=== PATIENT | male | born 1930 | race Caucasian/White ===

== ENCOUNTER 2018-01-28 15:56 | Emergency (ER) | payer MEDICARE, OTHER ==
[2018-01-28 16:12] VITALS: BP 168/65
--- NOTE | 2018-01-28 16:56 | UC ---
Cardiac HPI - HPI Summary HPI Summary: Patient to the urgent care today with his . Patient has noted increasing frequency of subjective sensation of palpitations. He's had these for a couple years but now these worsened over the last 5-7 days . he does feel short of breath and he has not had any chest pain currently at rest with us he is not having any chest pain or shortness of breath but he does complain of fatigue. - History of Current Complaint Chief Complaint: UCCardiac Stated Complaint: HEART COMPLAINT Time Seen by Provider: 01/28/18 16:14 Hx Obtained From: Patient Onset/Duration: Worse Since - past 5-7 days Timing: Constant Current Severity: None Pain Intensity: 0 Character: Slow, Irregular, Skipped Beats Aggravating Factor(s): Nothing Alleviating Factor(s): Rest - Allergy/Home Medications Allergies/Adverse Reactions: Allergies Allergy/AdvReac Type Severity Reaction Status Date / Time No Known Allergies Allergy Verified 01/28/18 16:13 Home Medications: Home Medications Melatonin 5 mg PO 01/28/18 [History] PMH/Surg Hx/FS Hx/Imm Hx Previously Healthy: No Cardiovascular History: Hypertension - Surgical History Surgical History: Yes Surgery Procedure, Year, and Place: 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, COLON CA 05/04, PROSTATECTOMY 1999 - Family History Known Family History: Positive: None - Social History Occupation: Retired Lives: With Family Alcohol Use: Rare Substance Use Type: None Smoking Status (MU): Never Smoked Tobacco - Immunization History Most Recent Influenza Vaccination: 2012 Most Recent Tetanus Shot: UNSURE Most Recent Pneumonia Vaccination: 2012 Review of Systems Constitutional: Negative Skin: Negative Eyes: Negative ENT: Negative Respiratory: Negative Cardiovascular: Palpitations Gastrointestinal: Negative Genitourinary: Negative Motor: Negative Neurovascular: Negative Musculoskeletal: Negative Neurological: Negative Psychological: Negative Is Patient Immunocompromised?: No All Other Systems Reviewed And Are Negative: Yes Physical Exam Triage Information Reviewed: Yes Appearance: Well-Appearing, No Pain Distress, Well-Nourished Vital Signs: Initial Vital Signs Temp 98.3 F 01/28/18 16:08 Pulse 57 01/28/18 16:08 Resp 15 01/28/18 16:08 BP 168/65 01/28/18 16:08 Pulse Ox 96 01/28/18 16:08 Vital Signs Reviewed: Yes Eye Exam: Normal Eyes: Positive: Conjunctiva Clear ENT Exam: Normal ENT: Positive: Normal ENT inspection, Hearing grossly normal. Negative: Trismus , Muffled voice, Hoarse voice Dental Exam: Normal Neck exam: Normal Neck: Positive: Supple, Nontender, No Lymphadenopathy Respiratory Exam: Normal Respiratory: Positive: Chest non-tender, Lungs clear, Normal breath sounds, No respiratory distress, No accessory muscle use Cardiovascular Exam: Other Cardiovascular: Positive: No Murmur, Pulses Normal, Brisk Capillary Refill, Bradycardia Abdominal Exam: Normal Musculoskeletal Exam: Normal Musculoskeletal: Positive: Strength Intact, ROM Intact, No Edema Neurological Exam: Normal Neurological: Positive: Alert, Muscle Tone Normal Psychological Exam: Normal Skin Exam: Normal Diagnostics - EKG Cardiac Rate: Bradycardia Cardiac Rhythm: Sinus: Normal Ectopy: PVCs ST Segment: Non-Specific - Assessment/Plan Course Of Treatment: to ed via ems for further evaluation of palpittions via EMS - Clinical Impression Provider Diagnoses: subjective palpitations, fatique, bradycardia - Physician Notifications Time Discussed With Above Provider: 16:45 Joanna Slater Instructed by Provider To: Transfer Discharge - Sign-Out/Discharge Documenting (check all that apply): Discharge/Admit/Transfer - Discharge Plan Condition: Stable Disposition: TRANS [facility] FAC Patient Education Materials: Heart Palpitations (ED) Referrals: Haile Rausch MD [Primary Care Provider] - Additional Instructions: Please go directly to the emergency department [facility] for further evaluation of your palpitations - Billing Disposition and Condition Condition: STABLE Disposition: [facility] Care Fac
== END 2018-01-28 16:55 | disposition short-term general hospital (02) ==
LOC: UCEAST 15:56
DX: R00.2 Palpitations (principal); R00.1 Bradycardia, unspecified; R53.83 Other fatigue; I10 Essential (primary) hypertension; Z85.038 Personal history of other malignant neoplasm of large intestine; Z90.79 Acquired absence of other genital organ(s)
CPT/HCPCS: 93005; 99213; G0463

== ENCOUNTER 2018-01-28 17:35 | Emergency (ER) | payer MEDICARE, OTHER ==
[2018-01-28 18:00] LABS: ABS Basophils 0 10^3/ul (0-0.2); ABS Eosinophils 0.2 10^3/ul (0-0.6); ABS Lymphocytes 1.4 10^3/ul (1.0-4.8); ABS Monocytes 0.8 10^3/ul (0-0.8); ABS Neutrophils 4.6 10^3/ul (1.5-7.7); ABS Nucleated RBC 0 10^3/ul; Hematocrit 41 % (42-52); Hemoglobin 14.1 g/dl (14.0-18.0); Lymphocyte % 19.5 % (25-47); Mean Corpuscular HGB Conc 34 g/dl (31-36); Mean Corpuscular Hemoglobin 30 pg (27-31); Mean Corpuscular Volume 88 fL (80-94); Mean Platelet Volume 8.8 um3 (7.4-10.4); Nucleated Red Blood Cells % 0; Platelet Count 167 10^3/ul (150-450); Red Blood Count 4.65 10^6/ul (4.0-5.4); Red Cell Distribution Width 14 % (10.5-15)
--- NOTE | 2018-01-28 18:12 | RAD ---
Indication: Palpitations. Single frontal view of the chest performed at 1757 hours was reviewed. Comparison is made with previous exam dated February 24, 2014. Cardiomegaly is noted. Interstitial edema is noted. No alveolar consolidation is noted. There is likely poor inspiratory effort. IMPRESSION: MILD VASCULAR CONGESTION AND POOR RESPIRATORY EFFORT WITHOUT DEFINITE EVIDENCE OF PNEUMONIA.
[2018-01-28 19:29] VITALS: BP 159/107
--- NOTE | 2018-01-28 21:22 | ED ---
Emil Rosales Angela, scribed for Ugo Herrera MD on 01/28/18 at 1819 . Palpitations / Dysrhythmia - HPI Summary HPI Summary: This pt is an 87 y/o male presenting to [facility] via EMS from [facility] c/o intermittent irregular heart rate for the past couple of months. Pt reports his irregular heart beat is more pronounced at night and has to take a deep breath to feel better. He is able to sleep lying flat at night. Pt additionally notes fatigue and general lack of energy. Denies chest pain, SOB, swelling in LE. 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 He tried to make an appointment with Dr. Wellington but was unable to get one until March, so he decided to go to Urgent Care. Pt was referred to the ED from Urgent Care. - History of Current Complaint Chief Complaint: EDDysrhythmPalp Hx Obtained From: Patient Onset/Duration: Still Present Timing: Intermittent Episodes Lasting: - a couple of months now Severity Currently: Moderate Character: Irregular Aggravating: Nothing Alleviating: Nothing Associated Signs & Symptoms: Negative - Allergy/Home Medications Allergies/Adverse Reactions: Allergies Allergy/AdvReac Type Severity Reaction Status Date / Time No Known Allergies Allergy Verified 01/28/18 17:49 Home Medications: Home Medications Aspirin EC TAB* [Ecotrin EC Low Dose 81 MG*] 81 mg PO DAILY 01/28/18 [History Confirmed 01/28/18] Hydrochlorothiazide TAB* [Hydrodiuril TAB*] 12.5 mg PO DAILY 01/28/18 [History Confirmed 01/28/18] Melatonin (NF) 1 tab PO BEDTIME PRN 01/28/18 [History Confirmed 01/28/18] PMH/Surg Hx/FS Hx/Imm Hx Endocrine/Hematology History: Denies: Hx Diabetes Cardiovascular History: Reports: Hx Hypertension, Other Cardiovascular Problems/ Disorders - IRREGULAR HEART BEAT - F/U WITH DR. 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 - Social History Alcohol Use: Rare Substance Use Type: Reports: None Smoking Status (MU): Never Smoked Tobacco Review of Systems Positive: Fatigue. Negative: Fever Positive: Palpitations. Negative: Chest Pain Negative: Shortness Of Breath Negative: Edema - in LE Neurological: Negative All Other Systems Reviewed And Are Negative: Yes Physical Exam - Summary Physical Exam Summary: Appearance: The patient is well-nourished in no acute distress and in no acute pain. Skin: The skin is warm and dry and skin color reflects adequate perfusion. HEENT: The head is normocephalic and atraumatic. The pupils are equal and reactive. The conjunctivae are clear and without drainage. Nares are patent and without drainage. Mouth reveals moist mucous membranes and the throat is without erythema and exudate. The external ears are intact. The ear canals are patent and without drainage. The tympanic membranes are intact. Neck: the neck is supple with full range of motion and non-tender. There are no carotid bruits. There is no neck vein distension. Respiratory: Chest is non-tender. Crackles in the bases, which cleared. Cardiovascular: Irregularly irregular heart beat. There is no murmur or rub auscultated. There is no peripheral edema and pulses are symmetrical and equal. Abdomen: The abdomen is soft and non-tender. There are normal bowel sounds heard in all four quadrants and there is no organomegaly palpated. Musculoskeletal: There is no back tenderness noted. Extremities are non-tender with full range of motion. There is good capillary refill. There is no peripheral edema or calf tenderness elicited. Neurological: Patient is alert and oriented to person, place and time. The patient has symmetrical motor strength in all four extremities. Cranial nerves are grossly intact. Deep tendon reflexes are symmetrical and equal in all four extremities. Psychiatric: The patient has an appropriate affect and does not exhibit any anxiety or depression. Triage Information Reviewed: Yes Vital Signs On Initial Exam: Initial Vitals Temp Pulse Resp BP Pulse Ox 98.9 F 67 15 169/72 96 01/28/18 17:44 01/28/18 17:44 06/06/18 17:44 01/28/18 17:44 01/28/18 17:44 Vital Signs Reviewed: Yes Diagnostics - Vital Signs Vital Signs Temp Pulse Resp BP Pulse Ox 01/28/18 17:44 98.9 F 67 15 169/72 96 - Laboratory Lab Results: Lab Results 01/28/18 01/28/18 01/28/18 Range/Units 17:46 17:46 17:46 WBC 7.0 (3.5-10.8) 10^3/ul RBC 4.65 (4.0-5.4) 10^6/ul Hgb 14.1 (14.0-18.0) g/dl Hct 41 L (42-52) % MCV 88 (80-94) fL MCH 30 (27-31) pg MCHC 34 (31-36) g/dl RDW 14 (10.5-15) % Plt Count 167 (150-450) 10^3/ul MPV 8.8 (7.4-10.4) um3 Neut % (Auto) 66.2 (38-83) % Lymph % (Auto) 19.5 L (25-47) % [place] % (Auto) 10.8 H (0-7) % Eos % (Auto) 3.0 (0-6) % Baso % (Auto) 0.5 (0-2) % Absolute Neuts (auto) 4.6 (1.5-7.7) 10^3/ul Absolute Lymphs (auto) 1.4 (1.0-4.8) 10^3/ul Absolute Monos (auto) 0.8 (0-0.8) 10^3/ul Absolute Eos (auto) 0.2 (0-0.6) 10^3/ul Absolute Basos (auto) 0 (0-0.2) 10^3/ul Absolute Nucleated RBC 0 10^3/ul Nucleated RBC % 0 Sodium 138 L (139-145) mmol/L Potassium 3.8 (3.5-5.0) mmol/L Chloride 102 (101-111) mmol/L Carbon Dioxide 28 (22-32) mmol/L Anion Gap 8 (2-11) mmol/L BUN 23 (6-24) mg/dL Creatinine 1.24 H (0.67-1.17) mg/dL Est GFR ( Amer) 70.8 (>60) Est GFR (Non-Af Amer) 55.0 (>60) BUN/Creatinine Ratio 18.5 (8-20) Glucose 98 (70-100) mg/dL Lactic Acid 0.9 (0.5-2.0) mmol/L Calcium 9.0 (8.6-10.3) mg/dL Total Bilirubin 0.50 (0.2-1.0) mg/dL AST 16 (13-39) U/L ALT 16 (7-52) U/L Alkaline Phosphatase 48 (34-104) U/L Troponin I Pending Total Protein 6.8 (6.4-8.9) g/dL Albumin 4.0 (3.2-5.2) g/dL Globulin 2.8 (2-4) g/dL Albumin/Globulin Ratio 1.4 (1-3) TSH Pending Result Diagrams: 01/28/18 17:46 01/28/18 17:46 Lab Statement: Any lab studies that have been ordered have been reviewed, and results considered in the medical decision making process. - Radiology Chest XR Xray Interpretation: Positive (See Comments) - IMPRESSION: Mild vascular congestion and poor respiratory effort without definite evidence of pneumonia. Dr. Herrera has reviewed this radiology report. Radiology Interpretation Completed By: Radiologist - EKG 17:37 Cardiac Rate: NL - at 65 bpm EKG Rhythm: Sinus Rhythm Ectopy: PVCs - multiple EKG Interpretation: probable LVH. EKG Comparison: No Significant Change - from prior EKG on 08/06/13. Re-Evaluation - Re-Evaluation First Eval Re-Evaluation Time: 19:21 Comment: I reviewed lab and imaging results with the pt and . He will be discharged home with follow up from Dr. Wellington. Course/Dx - Course Course Of Treatment: Mr. Meeks presented to the emergency department complaining of palpitations that have been going on for months. He is essentially asymptomatic with them denying chest pain, shortness of breath, paroxysmal nocturnal dyspnea and is able to sleep lying flat. He was noted to have reasonably frequent PVCs on the monitor and to be nontoxic in appearance with normal vital signs. His workup was negative including troponin and EKG.. He does complain of generalized fatigue for the last week or so. He was evaluated with sleep studies and told that he has mild sleep apnea and prescribed a CPAP machine. He does not use a CPAP machine because it is unpleasant. I recommended to him that he try using the CPAP machine and see if that helped his fatigue and follow up closely with Dr. Wellington. - Diagnoses Provider Diagnoses: PVCs (premature ventricular contractions), Sleep apnea Discharge - Sign-Out/Discharge Documenting (check all that apply): Discharge/Admit/Transfer - Discharge - Discharge Plan Condition: Stable Disposition: HOME Patient Education Materials: Sleep Apnea (DC), Premature Ventricular Contractions (ED) Referrals: Michael Wellington MD [Medical Doctor] - Haile Rausch MD [Medical Doctor] - Additional Instructions: Please follow up with Dr. Wellington, drywall professional. RETURN TO THE ED FOR ANY WORSENING SYMPTOMS. - Billing Disposition and Condition Condition: STABLE Disposition: Home The documentation as recorded by the Emil carey Angela accurately reflects the service I personally performed and the decisions made by me, Ugo Herrera MD.
== END 2018-01-28 19:28 | disposition home or self-care (01) ==
LOC: ED 17:35
DX: I49.3 Ventricular premature depolarization (principal); G47.30 Sleep apnea, unspecified; R09.89 Other specified symptoms and signs involving the circulatory and respiratory systems
CPT/HCPCS: 36415; 71045; 80053; 83605; 83880; 84443; 84484; 85025; 93005; 99283

== ENCOUNTER 2019-05-20 08:34 | Emergency (ER) | payer MEDICARE ==
--- OUTSIDE RECORDS SUMMARY | 2019-05-20 08:41 | XMS REPORT | Continuity of Care Document ---
:1930 External Reference #:[id number] Author Name Washington Welch M.D. 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 Onset: 04/26/2016 History of malignant neoplasm of prostate Washington Welch M.D. Onset: 04/26 History of malignant neoplasm of kidney Washington Welch M.D. 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 Onset: 10/25/2016 Obstructive sleep apnea syndrome Washington Welch M.D. Onset: 10/25/2016 Aortic valve disorder Washington Welch M.D. Onset: 05/02/2017 Malignant tumor of kidney Washington Welch M.D. Onset: 05/07/2019 Social History Type Date Description Comments Sex Unknown Tobacco Use Start: Unknown Nonsmoker ETOH Use Rare Tobacco Use Start: Unknown Patient has never smoked Allergies, Adverse Reactions, Alerts Description No Known Drug Allergies Medications Active Medications SIG Qnty Indications Ordering Date Provider Trazodone HCL Take 1 Tablet 30tabs Dona Mary Beth 06/27/2018 50mg Tablets By Mouth VIMAL Garland Nightly AT Bedtime Amlodipine Besylate Take One Tablet 90tabs Washington Gusman 10/10/2017 5mg Tablets By Mouth Once Jim Welch Daily as Directed Hydrochlorothiazide Take One 90caps Washington FCristopher 12.5mg Capsule By Jim Welch Capsules Mouth Once Daily Aspirin Ec 1 by mouth Unknown 81mg Tablets DR every day Immunizations CPT Code Status Date Vaccine Lot # [id number] Given 06/09/2018 High-Dose, Influenza Virus Vacccine-fluzone 65 and older [id number] Given 05/02/2017 Pneumococcal Immunization [id number] Given 05/02/2017 High-Dose, Influenza Virus Vacccine-fluzone 65 and [id number] older 32671 Given 10/25/2016 Zostivax [id number] Given 04/26/2016 Tdap Tetanus, W Pertussis [id number] Given 04/26/2016 Pneumococcal Conjugate Vacc-13 [id number] 54473 Given 04/26/2016 High-Dose, Influenza Virus Vacccine-fluzone 65 and [id number] older Vital Signs Date Vital Result Comment 05/07/2019 4:22pm BP Systolic 140 mmHg BP Diastolic 50 mmHg Heart Rate 60 /min Body Temperature 97.7 F Respiratory Rate 16 /min Height 67.5 inches 5'7.50" Weight 174.00 lb BMI (Body Mass Index) 26.8 kg/m2 04/13/2019 9:47am BP Systolic 124 mmHg BP Diastolic 68 mmHg Heart Rate 84 /min Body Temperature 98.0 F Respiratory Rate 16 /min Height 67.5 inches 5'7.50" Weight 168.00 lb BMI (Body Mass Index) 25.9 kg/m2 Results Test Date Facility Test Result H/L Range Note CBC Auto Diff 04/21/2019 [facility] White Blood Count 7.6 10^3/uL Normal 3.5- 10.8 Red Blood Count 4.64 10^6/uL Normal 4.18-5.48 Hemoglobin 13.7 g/dL Low 14.0-18.0 Hematocrit 40 % Low 42-52 Mean Corpuscular Volume 87 fL Normal 80-94 Mean Corpuscular Hemoglobin 30 pg Normal 27-31 Mean Corpuscular HGB Conc 34 g/dL Normal 31-36 Red Cell Distribution Width 15 % Normal 10-15 Platelet Count 228 10^3/uL Normal 150-450 Mean Platelet Volume 8.6 fL Normal 7.4-10.4 Abs Neutrophils 5.6 10^3/uL Normal 1.5-7.7 Abs Lymphocytes 0.9 10^3/uL Low 1.0-4.8 Abs Monocytes 0.9 10^3/uL High 0-0.8 Abs Eosinophils 0.1 10^3/uL Normal 0-0.6 Abs Basophils 0.0 10^3/uL Normal 0-0.2 Abs Nucleated RBC 0.0 10^3/uL Granulocyte % 73.6 % Lymphocyte % 12.3 % Monocyte % 12.0 % Eosinophil % 1.6 % Basophil % 0.5 % Nucleated Red Blood Cells % 0.1 Retic Count 04/21/2019 [facility] Retic Count 1.1 % Normal 0.5-1.5 Corrected Retic Count 1.0 % Normal 0.5-1.5 Maturation Factor Retic 1.0 Retic Index 1.00 Mean Retic Volume 104.7 Immature Retic Fraction 0.42 RBC Retic Count 4.64 10^6/uL Normal 4.18-5.48 Hematocrit for Retic CNT 40 % Low 42-52 Laboratory test finding 04/21/2019 [facility] LDH 186 U/L Normal 140-271 Iron & Iron Binding Capacity 04/21/2019 [facility] Iron 55 g/dL Normal 50-212 Unsaturated Iron Binding < 294 g/dL Total Iron Binding Capacity 309 g/dL Normal 250-450 Transferrin 221 mg/dL Normal 203-362 % Iron Saturation 18 % Normal 15-55 Laboratory test finding 04/21/2019 [facility] Ferritin 34.3 ng/mL Normal 24-336 Vitamin B12 279 pg/mL Normal 180-914 1 Protein 04/21/2019 [facility] Total Protein(Pep) 6.0 g/dL Abnormal 6.3 - 7.9 Electrophoresis Albumin 3.1 g/dL Abnormal 3.4-4.7 Alpha-1 Globulin 0.3 g/dL 0.1-0.3 Alpha-2 Globulin 0.9 g/dL 0.6-1.0 Beta Globulin 0.8 g/dL 0.7-1.2 Gamma Globulin 0.8 g/dL 0.6-1.6 Albumin/Globulin Ratio 1.07 Impression See Comment 2 Xray 04/14/[address] Chest W/Contrast SEE ATTACHED [facility] [phone] Ua - Micro (Fma) 04/13/2019 [facility] Appearance clear (607)- - Color yellow Glucose, Urine (Fma/CMC/CTX) neg Bilirubin neg Ketones trace SP Grav 1.025 Blood trace-lysed PH 5.0 Protein 2+ Urobil 0.2 Nitrite neg Leukocytes (Fma/CMC/Centrex) neg Hyaline - /Lpf Granular - /Lpf WBC (Fma,Centrex) - RBC 0-2 Mucus (Fma/CBC/Centrex) - /Lpf Epith rare /Lpf Bacteria trace /Hpf Amorphous (Fma/CMC/Centrex) - /Lpf Crystals, Fluid (Fma/CMC/CTX) - Comprehensive Metabolic 04/13/2019 [facility]) Sodium 136 mEq/L 134-149 Prof Potassium 3.8 mEq/L 3.6-5.5 Chloride 101 mEq/L 94-112 Carbon Dioxide 31 mEq/L 21-32 Glucose 100 mg/dL 70-105 BUN 29 mg/dL High 6-26 3 Creatinine 1.5 mg/dL High 0.6-1.4 4 BUN/Creat Ratio 19.3 CALC 8.0-36.0 Calcium 8.7 mg/dL 8.6-10.2 Total Protein 6.2 g/dL Low 6.4-8.3 5 Albumin 4.0 g/dL 3.8-5.5 Globulin 2.2 g/dL 2.0-4.8 A/G Ratio 1.8 CALC 0.6-2.3 Alk. Phosphatase 48 U/L 22-95 Alt (SGPT) 11 U/L 7-35 Ast (Sgot) 16 U/L 5-34 Total Bilirubin 0.8 mg/dL 0.2-1.3 GFR Non- 47 ml/min/1.73m^ Low >=60 GFR 57 ml/min/1.73m^ Low >=60 Laboratory test 04/13/2019 [facility]) Free T4 1.11 ng/dL 0.75- 1.54 finding TSH 2.50 mIU/L 0.50-6.00 Vitamin B-12 278 pg/mL 230-1050 PSA <0.1 ng/mL Low 0.0-4.0 6 CBC Electronic a 04/13/2019 [facility]) WBC 6.0 x10^3/UL 4.0- 10.0 RBC 4.61 x10^6/UL 3.93-6.00 HGB 13.7 g/dL 12.0-17.0 HCT 41 % 35-50 MCV 88.3 fL 80.0-95.0 MCH 29.7 pg 25.6-32.2 MCHC 33.7 g/dL 32.2-36.0 RDW-CV 14.1 % 11.6-14.4 PLT 155 x10^3/UL Low 163-400 MPV 11.5 fL 9.4-12.4 Shaun# 3.67 x10^3/UL 1.56-6.13 Lymph# 1.14 x10^3/UL Low 1.18-3.74 [place]# 1.09 x10^3/UL High 0.24-0.82 Eos # 0.1 x10^3/UL 0.0-0.5 Baso # 0.02 x10^3/UL 0.01-0.08 Shaun% 61.4 % 34.0-70.0 Lymph % 19.1 % Low 20.0-52.0 [place]% 18.2 % High 5.0-12.0 7 Eos% 0.8 % 0.7-7.0 Baso% 0.3 % 0.1-1.2 Laboratory test 04/13/2019 [facility] C-Reactive 24 mg/L High 0-10 8 finding [address] [facility] Protein, [place] [address] (607)- - Lyme Antibody, 04/13/2019 [facility] IgG P93 Ab. Absent Line Blot, Serum [address] [place] [address] (607)- - IgG P66 Ab. Absent IgG P58 Ab. Absent IgG P45 Ab. Absent IgG P41 Ab. Absent IgG P39 Ab. Absent IgG P30 Ab. Absent IgG P28 Ab. Absent IgG P23 Ab. Absent IgG P18 Ab. Absent Lyme IgG LB Interp. Negative 9 IgM P41 Ab. Absent IgM P39 Ab. Absent IgM P23 Ab. Absent Lyme IgM LB Interp. Negative 10 1 Normal Range 180 to 914 Indeterminate Range 145 to 180 Deficient Range <145 2 RESULT: No apparent monoclonal protein on serum electrophoresis. Test Performed by: [facility] [address] [place] [address] 3 RESULTS VERIFIED BY REPEAT ANALYSIS 4 RESULTS VERIFIED BY REPEAT ANALYSIS 5 RESULTS VERIFIED BY REPEAT ANALYSIS 6 consistent w/ previous results 7 RESULTS VERIFIED BY REPEAT ANALYSIS 8 serum 9 Positive: 5 of the following Borrelia-specific bands: 18,23,28,30,39,41,45,58, 66, and 93. Negative: No bands or banding patterns which do not meet positive criteria. 10 Note: An equivocal or positive EIA result followed by a negative Western Blot result is considered NEGATIVE. An equivocal or positive EIA result followed by a positive Western Blot is considered POSITIVE by the CDC. Positive: 2 of the following bands: 23,39 or 41 Negative: No bands or banding patterns which do not meet positive criteria. Criteria for positivity are those recommended by CDC/ASTPHLD. p23=Osp C, p74=apyewamyr Note: Sera from individuals with the following may cross react in the Lyme Western Blot assays: other spirochetal diseases (periodontal disease, leptospirosis, relapsing fever, yaws, and pinta); connective autoimmune (Rheumatoid Arthritis and Systemic Lupus Erythematosus and also individuals with Antinuclear Antibody); other infections ([employer] Spotted Fever; Sobeida-Brunner Virus, and Cytomegalovirus). Procedures Date Code Description Status 08/25/2010 49346402 Colonoscopy Completed Medical Devices Description No Information Available Encounters Type Date Location Provider Dx Diagnosis Office Visit 04/13/2019 [facility] Office Antonietta Mejía, I10 Essential ( primary) 10:00a M.D. hypertension G47.33 Obstructive sleep apnea (adult) (pediatric) Z85.09 Personal history of malignant neoplasm of digestive organs Z85.528 Personal history of other malignant neoplasm of kidney Z85.46 Personal history of malignant neoplasm of prostate R53.83 Other fatigue R19.7 Diarrhea, unspecified R63.4 Abnormal weight loss R16.0 Hepatomegaly, not elsewhere classified R31.29 Other microscopic hematuria Assessments Date Code Description Provider 05/07/2019 C64.1 Malignant neoplasm of right kidney, except Washington Welch M.D. renal pelvis 05/07/2019 Z85.09 Personal history of malignant neoplasm of Washington Welch M.D. other digestive organs 05/07/2019 Z85.46 Personal history of malignant neoplasm of Washington Welch M.D. prostate 04/13/2019 I10 Essential (primary) hypertension Antonietta Mejía M.D. 04/13/2019 G47.33 Obstructive sleep apnea (adult) (pediatric) Antonietta Mejía M.D. 04/13/2019 Z85.09 Personal history of malignant neoplasm of Antonietta Mejía M.D. other digestive organs 04/13/2019 Z85.528 Personal history of other malignant Antonietta Mejía M.D. neoplasm of kidney 04/13/2019 Z85.46 Personal history of malignant neoplasm of Antonietta Mejía M.D. prostate 04/13/2019 R53.83 Other fatigue Antonietta Mejía M.D. 04/13/2019 R19.7 Diarrhea, unspecified Antonietta Mejía M.D. 04/13/2019 R63.4 Abnormal weight loss Antonietta Mejía M.D. 04/13/2019 R16.0 Hepatomegaly, not elsewhere classified Antonietta Mejía M.D. 04/13/2019 R31.29 Other microscopic hematuria Antonietta Mejía M.D. Plan of Treatment Future Appointment(s):05/21/2019 2:00 pm - Washington Welch M.D. at [facility]05/07/2019 - Washington Welch M.D.C64.1 Malignant neoplasm of right kidney, except renal pelvisComments:to continue follow up with Dr Prado and Diaz85.09 Personal history of malignant neoplasm of other digestive hwmptkD46.46 Personal history of malignant neoplasm of prostateAllComments: Medication Management Patient Understands medications he's taking? Yes No Are there Barriersto Adherence? Yes No Has the patient been asked about herbal supplements and therapies, and OTC meds? Yes NoFollow up: 2 months Functional Status Description No Information Available Mental Status Description No Information Available Referrals Refer to Reason for Referral Status Appt Date Mj Garcia New right renal mass seen on CT Scan/patient has Scheduled 01/2019 hx of renal cancer jw [address] [facility] [place] [address] [place] [address] [phone] Pedro Luis Ayala MD new right renal mass seen on ct/patient has Scheduled 04/21 history of renal cancer jw [address] [facility] [address] [place] [address] [phone]
--- OUTSIDE RECORDS SUMMARY | 2019-05-20 08:42 | XMS REPORT | Continuity of Care Document ---
:1930 External Reference #:[id number] Author Name Antonietta Mejía M.D. Address [address] [facility] [place] [address] Care Team Providers Name Role Phone Washington Welch MD - Family Medicine Care Team Information Blanket Folder [phone] Problems Active Problems Provider Date Essential hypertension [...] valve disorder Washington Welch M.D. Onset: 05/02/2017 Social History Type Date Description Comments Sex Unknown Tobacco Use Start: Unknown Nonsmoker ETOH Use Rare Tobacco Use Start: Unknown Patient has never smoked Allergies, Adverse Reactions, Alerts Description No Known Drug Allergies Medications Active Medications SIG Qnty Indications Ordering Date Provider Trazodone HCL take 1 tablet 30tabs Dona Mary Beth 06/27/2018 50mg Tablets by mouth VIMAL Garland nightly at bedtimie Amlodipine Besylate Take One Tablet 90tabs Washington FCristopher 10/10/2017 5mg Tablets By Mouth Once Jim Welch Daily as Directed Hydrochlorothiazide Take One 90caps Washington FCristopher 12.5mg Capsule By Jim Welch Capsules Mouth Once Daily Aspirin Ec 1 by mouth Unknown 81mg Tablets DR every day Immunizations CPT Code Status Date Vaccine Lot # [id number] Given 06/09/2018 High-Dose, Influenza Virus Vacccine-fluzone 65 and older [id number] Given 05/02/2017 Pneumococcal Immunization [id number] Given 05/02/2017 High-Dose, Influenza Virus Vacccine-fluzone 65 and [id number] older 91873 Given 10/25/2016 Zostivax 11339 Given 04/26/2016 Tdap Tetanus, W Pertussis [id number] 13492 Given 04/26/2016 Pneumococcal Conjugate Vacc-13 [id number] 10684 Given 04/26/2016 High-Dose, Influenza Virus Vacccine-fluzone 65 and [id number] older Vital Signs Date Vital Result Comment 04/13/2019 9:47am BP Systolic 124 mmHg BP Diastolic 68 mmHg Heart Rate 84 /min Body Temperature 98.0 F Respiratory Rate 16 /min Height 67.5 inches 5'7.50" Weight 168.00 lb BMI (Body Mass Index) 25.9 kg/m2 07/13/2018 12:06pm BP Systolic 154 mmHg BP Diastolic 58 mmHg Heart Rate 76 /min Body Temperature 98.1 F Respiratory Rate 16 /min Height 67.5 inches 5'7.50" Weight 176.00 lb BMI (Body Mass Index) 27.2 kg/m2 Results Description No Information Available Procedures Date Code Description Status 08/25/2010 [id number] Colonoscopy Completed Medical Devices Description No Information Available Encounters Description No Information Available Assessments Date Code Description Provider 04/13/2019 I10 Essential (primary) hypertension Antonietta Mejía M.D. 04/13/2019 G47.33 Obstructive sleep apnea (adult) (pediatric) Antonietta Mejía M.D. 04/13/2019 Z85.09 Personal history of malignant neoplasm of other Antonietta Mejía M.D. digestive organs 04/13/2019 Z85.528 Personal history of other malignant neoplasm of Antonietta Mejía M.D. kidney 04/13/2019 Z85.46 Personal history of malignant neoplasm of Antonietta Mejía M.D. prostate 04/13/2019 R53.83 Other fatigue Antonietta Mejía M.D. 04/13/2019 R19.7 Diarrhea, unspecified Antonietta Mejía M.D. 04/13/2019 R63.4 Abnormal weight loss Antonietta Mejía M.D. 04/13/2019 R16.0 Hepatomegaly, not elsewhere classified Antonietta Mejía M.D. Plan of Treatment Future Appointment(s):05/07/2019 3:30 pm - Washington Welch M.D. at [facility] Pfaqma6305/21/2019 2:00 pm - Washington Welch M.D. at [facility] [id number] - Antonietta Mejía M.D.I10 Essential (primary) hypertensionNew Labs:Comp Metabolic-ALL Lab Compani, Ordered: 04/13/19CBC Electronic-ALL Lab Compani, Ordered: 04/13/19Ua - Micro If Indicated (Centr, Ordered: 04/13/19Free T4 (Fma/ [facility]), Ordered: 04/13/19TSH (Fma/CMC/[facility]), Ordered: 04/13/19Comments:The patient will continue to monitor blood pressure and let me know the blood pressure results if there are readings persistently above 140/90. Goal blood pressure is less than 130/80. Recommend low salt/cardiac diet such as the Mediterranean diet and routine exercise at least 30 minutes a day.Follow up: 1moG47.33 Obstructive sleep apnea (adult) (pediatric)Comments:wears CPAP nightly with improvement of pyqkufnuE46.09 Personal history of malignant neoplasm of other digestive organsNew Labs:CRP, Ordered: 04/13/19Comments:check imaging concern for metastatic disease given multiple cancer rslaubrB42.528 Personal history of other malignant neoplasm of fibuivT79.46 Personal history of malignant neoplasm of prostateNew Labs:PSA (ALL Lab Comp), Ordered: R53.83 Other fatigueNew Labs:Lyme Abs Igg/Igm Eia RFX WB, Ordered: B12 (Fma/CMC/Centrex), Ordered: 04/13/19Comments:The patient was instructed to call or return to the office if there was no improvement .R19.7 Diarrhea, unspecifiedComments:check imaging;BRAT diet discussed and eat bland foods, keep hydrated, avoid dairy, greasy, spicy foods and caffeine, alcohol and sugary drinks; minimize xxgozO34.4 Abnormal weight lossNew Labs:Comp Metabolic-ALL Lab Compani, Ordered: 04/13/19CBC Electronic-ALL Lab Compani, Ordered: 04/13/19Free T4 (Fma/[facility]), Ordered: 04/13/19Comments:discussed concern for cancer reoccurrence, check [id number] Hepatomegaly, not elsewhere classifiedAllComments:Medication Management Patient Understands medications he' s taking? Yes No Are there Barriersto Adherence? Yes No Has the patient been asked about herbal supplements and therapies, and OTC meds? Yes No Functional Status Description No Information Available Mental Status Description No Information Available Referrals Description No Information Available
[2019-05-20] MEDS ORDERED: Ibuprofen TAB* 600 MG PO ONE (08:58)
--- NOTE | 2019-05-20 10:11 | UC ---
Lower Extremity/Ankle HPI - HPI Summary HPI Summary: 88 year old male comes in with a chief complaint of right leg pain. Started about 2 days ago. It's constant. 8 out of 10. Is in the upper calf and right knee. No known trauma. 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 No history of deep venous thrombosis. Is not on any blood thinners. - History of Current Complaint Chief Complaint: UCLowerExtremity Stated Complaint: PAIN IN LEG Time Seen by Provider: 05/20/19 08:52 Pain Intensity: 8 - Allergies/Home Medications Allergies/Adverse Reactions: Allergies Allergy/AdvReac Type Severity Reaction Status Date / Time No Known Allergies Allergy Verified 05/20/19 08:47 Home Medications: Home Medications Aspirin TAB* [Aspirin 325 MG TAB*] 325 mg PO DAILY PRN 05/20/19 [History Confirmed 05/20/19] PMH/Surg Hx/FS Hx/Imm Hx Previously Healthy: Yes Cardiovascular History: Hypertension - Surgical History Surgical History: Yes Surgery Procedure, Year, and Place: 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 - Social History Alcohol Use: Rare Substance Use Type: None Smoking Status (MU): Never Smoked Tobacco - Immunization History Most Recent Influenza Vaccination: 2012 Most Recent Tetanus Shot: UNSURE Most Recent Pneumonia Vaccination: 2013 Review of Systems All Other Systems Reviewed And Are Negative: Yes Constitutional: Positive: Negative Skin: Positive: Other - SEE HPI Eyes: Positive: Negative ENT: Positive: Negative Respiratory: Positive: Negative Cardiovascular: Positive: Negative Gastrointestinal: Positive: Negative Motor: Positive: Negative Neurovascular: Positive: Negative Musculoskeletal: Positive: Other: - SEE HPI Neurological: Positive: Negative Psychological: Positive: Negative Is Patient Immunocompromised?: No Physical Exam Triage Information Reviewed: Yes Appearance: Well-Appearing, Well-Nourished, Pain Distress - MILD Vital Signs: Initial Vital Signs Temp 98.4 F 05/20/19 08:42 Pulse 65 05/20/19 08:42 Resp 16 05/20/19 08:42 BP 174/75 05/20/19 08:42 Pulse Ox 96 05/20/19 08:42 Vital Signs Reviewed: Yes Eye Exam: Normal Eyes: Positive: Conjunctiva Clear Neck: Positive: Supple Respiratory: Positive: No respiratory distress Musculoskeletal: Positive: Other: - Right leg has normal dorsalis pedis pulse normal capillary refill normal sensation. He does have varicose veins in the upper calf area of anterior and posterior. There is a slight prominence mid shaft of the anterior tibia. Knee has full range of motion and is nontender to palpation. Neurological: Positive: Alert Psychological: Positive: Age Appropriate Behavior Skin: Positive: Other - Patient does have varicose veins in the upper right leg anterior and posterior. No erythema not hot to touch. No obvious skin break. Lower Extremity Course/Dx - Course Course Of Treatment: Portable Track Line Marker: Norbert Plata C ([id number]) Electrical Service Technician: CHANNING ( OLLIEANCE) Report Date: 05/20/2019 08:58:00 Report Status: Final ====== Start of Report Content Patient Name: MARICRUZ BEDOYA Medical Record#: [id number] Ordering Physician: Devon Girard MD Acct.#: [id number] : Age: 88 Sex: M Location: [facility] Exam Date: 05/20/19 0858 ADM Status: REG ER Order Information: TIBIA FIBULA RIGHT Accession Number: [id number] CPT: 63135 Indication: RIGHT knee and leg pain for a few days. No reported preceding injury. Comparison: November 23, 2012 MRI. Technique: RIGHT knee : AP, tunnel, lateral, sunrise views. Report: #. Negative for joint effusion. # . Ill-defined soft tissue density at the popliteal fossa consistent with a popliteal cyst based on correlation with the prior MRI. #. Negative for fracture , radiographic findings of stress reaction, avascular necrosis, or focal osseous lesions. #. Osteoarthritis: Advanced patellofemoral joint space narrowing and mild medial joint compartment joint space narrowing. Subtle chondrocalcinosis at the femoral-tibial joint compartments. #. Unremarkable soft tissue contours. #. Peripheral vascular calcifications. IMPRESSION: #. Osteoarthritis without significant interval change. #. Probable popliteal cyst likely decrease in size compared with the 2013 exam. <Electronically signed by Norbert Plata MD in OV> 05/20/19950 Dictated By: Norbert Plata MD Dictated Date/Time: 946 Transcribed Date/Time: 05/20/19946 Copy to: CC:Washington Welch MD; Devon Girard MD Imaging - [facility] [address] [place] [address] [address] [address] ph ([phone]) ph [phone] ph ([phone]) End of Report Content Portable Track Line Marker: Norbert Plata C, ([id number]) Electrical Service Technician: CHANNING ( NUANCE) Report Date: 05/20/2019 08:58:00 Report Status: Final ====== Start of Report Content Patient Name: MARICRUZ BEDOYA Medical Record#: [id number] Ordering Physician: Devon Girard MD Acct.#: [id number] : Age: 88 Sex: M Location: [facility] Exam Date: 05/20/19857 ADM Status: REG ER Order Information: KNEE RIGHT 4+ VWS Accession Number: [id number] CPT: 80278 Indication: RIGHT knee and leg pain for a few days. No reported preceding injury. Comparison: November 23, 2012 MRI. Technique: RIGHT knee : AP, tunnel, lateral, sunrise views. Report: #. Negative for joint effusion. # . Ill-defined soft tissue density at the popliteal fossa consistent with a popliteal cyst based on correlation with the prior MRI. #. Negative for fracture , radiographic findings of stress reaction, avascular necrosis, or focal osseous lesions. #. Osteoarthritis: Advanced patellofemoral joint space narrowing and mild medial joint compartment joint space narrowing. Subtle chondrocalcinosis at the femoral-tibial joint compartments. #. Unremarkable soft tissue contours. #. Peripheral vascular calcifications. IMPRESSION: #. Osteoarthritis without significant interval change. #. Probable popliteal cyst likely decrease in size compared with the 2012 exam. <Electronically signed by Norbert Plata MD in OV> 05/20/19950 Dictated By: Norbert Plata MD Dictated Date/Time: 946 Transcribed Date/Time: 05/20/19946 Copy to: CC:Washington Welch MD; Devon Girard MD Imaging - [facility] Imaging - [facility] [address] [address] ph [phone] ph ) ph [phone]) End of Report Content Portable Track Line Marker: Valerie Rodriguez S, ([id number]) Electrical Service Technician: CHANNING (OLLIEANCE) Report Date: 05/20/2019 08:58:00 Report Status: Final Start of Report Content ===== Patient Name: MARICRUZ BEDOYA Medical Record#: [id number] Ordering Physician: Devon Girard MD Acct.#: [id number] : 1930 Age: 88 Sex: M Location : [facility] Exam Date: 05/20/19 0858 ADM Status: REG ER Order Information: VL LOWER EXT VEINS RIGHT Accession Number: [id number] CPT: 76713 Indication: Right leg edema. Duplex Doppler sonography of the deep venous system of the right lower extremity deep venous system was performed. Bilaterally the common femoral veins appear patent and compressible. Right proximal greater saphenous vein, proximal deep femoral vein, femoral vein, popliteal vein, posterior tibial veins and peroneal veins appear patent and compressible. IMPRESSION: NO EVIDENCE OF DEEP VENOUS THROMBOSIS IS IDENTIFIED. _ 05/20/19 1029 Dictated By: Valerie Rodriguez MD Dictated Date/Time: 05/20/19 1029 Transcribed Date/ Time: 05/20/19 1029 Copy to: CC:Washington Welch MD; Devon Girard MD [facility] Imaging - [facility] [address] [address] ph ([phone]) ph ([phone]) ph ([phone]) End of Report Content === I discussed the x-rays and the ultrasound with the patient. He was given ibuprofen 600 mg by mouth here in clinic and he says the pain is much improved. I do not see any signs of cellulitis. On the x-rays it does show arthritis and a Gonzalez cyst. At this time most probable cause of the pain is arthritis. We'll treat with nonsteroidal anti-inflammatory and ice. Also recommended getting a neoprene sleeve for the need to see if that helps. Follow-up with orthopedics or sports medicine. I did let him know that I did not see any signs of infection at this time but if he did have any other symptoms such as fever or swelling increased pain He needs to get reevaluated sooner. - Differential Dx/Diagnosis Provider Diagnosis: Right leg pain, Arthritis of right knee, Gonzalez's cyst of knee Discharge ED - Sign-Out/Discharge Documenting (check all that apply): Patient Departure All imaging exams completed and their final reports reviewed: Yes - Discharge Plan Condition: Stable Disposition: HOME Prescriptions: Naproxen [Naproxen 500 mg tab] 500 mg PO BID #20 tablet Patient Education Materials: Leg Pain (ED), Knee Pain (ED), Arthritis (ED), Bakers Cyst (ED) Referrals: Washington Welch MD [Primary Care Provider] - Beba Curry MD [Medical Doctor] - [facility] [Provider Group] Additional Instructions: FOLLOW UP WITH ORTHOPEDICS, DR CURRY, OR SPORTS MEDICINE. GET RECHECKED SOONER IF YOUR CONDITION WORSENS; PAIN, FEVER, SWELLING, YOU FEEL ILL OR ANY QUESTIONS OR CONCERNS. - Billing Disposition and Condition Condition: STABLE Disposition: Home
[2019-05-20 11:08] VITALS: BP 138/81
== END 2019-05-20 11:10 | disposition home or self-care (01) ==
LOC: UCEAST 08:34
DX: M79.604 Pain in right leg (principal); M17.11 Unilateral primary osteoarthritis, right knee; M71.21 Synovial cyst of popliteal space [Baker], right knee; I10 Essential (primary) hypertension; Z79.82 Long term (current) use of aspirin
CPT/HCPCS: 99212; A9270-GY; G0463

== ENCOUNTER 2019-05-23 10:47 | Emergency (ER) | payer MEDICARE ==
--- OUTSIDE RECORDS SUMMARY | 2019-05-23 10:52 | XMS REPORT | Continuity of Care Document ---
:1930 External Reference #:[id number] Author Name Washington Welch M.D. Address [address] [place] [address] Care Team Providers Name Role Phone Washington Welch MD - Family Medicine Care Team Information Guest Experience Captain [phone] Problems Active Problems Provider Date Essential hypertension [...] valve disorder Washington Welch M.D. Onset: 05/02/2017 Impacted cerumen Washington Welch M.D. Onset: 05/21/2019 Pain in right lower limb Washington Welch M.D. Onset: 05/21/2019 Low back pain Washington Welch M.D. Onset: 05/21/2019 Malignant tumor of kidney Washington Welch M.D. [...] Amlodipine Besylate Take One Tablet 90tabs Washington F. 10/10/2017 5mg Tablets By Mouth Once Jim Welch Daily as Directed Hydrochlorothiazide Take One 90caps Washington F. 12.5mg Capsule By Jim Welch Capsules Mouth Once Daily Aspirin Ec 1 by mouth Unknown 81mg Tablets DR every day Immunizations CPT Code Status Date Vaccine Lot # [id number] Given 06/09/2018 High-Dose, Influenza Virus Vacccine-fluzone 65 and older [id number] Given 05/02/2017 Pneumococcal Immunization [id number] Given 05/02/2017 High-Dose, Influenza Virus Vacccine-fluzone 65 and [id number] older 06470 Given 10/25/2016 Zostivax [id number] Given 04/26/2016 Tdap Tetanus, W Pertussis [id number] Given 04/26/2016 Pneumococcal Conjugate Vacc-13 [id number] 03934 Given 04/26/2016 High-Dose, Influenza Virus Vacccine-fluzone 65 and [id number] older Vital Signs Date Vital Result Comment 05/21/2019 1:54pm BP Systolic 138 mmHg BP Diastolic 56 mmHg Heart Rate 80 /min Body Temperature 97.9 F Respiratory Rate 20 /min Height 68 inches 5'8" Weight 174.00 lb BMI (Body Mass Index) 26.5 kg/m2 05/07/2019 4:22pm BP Systolic 140 mmHg BP Diastolic 50 mmHg Heart Rate 60 /min Body Temperature 97.7 F Respiratory Rate 16 /min Height 67.5 inches 5'7.50" Weight 174.00 lb BMI (Body Mass Index) 26.8 kg/m2 Results Test Date Facility Test Result H/L Range Note CBC Auto Diff 04/21/[place] [facility] [place] Blood Count 7.6 [...] Blood Cells % 0.1 Retic Count 04/21/2019 [facility] [place]etic Count 1.1 % Normal 0.5-1.5 Corrected Retic Count 1.0 % Normal 0.5-1.5 Maturation Factor Retic 1.0 Retic Index 1.00 Mean Retic Volume 104.7 Immature Retic Fraction 0.42 RBC Retic Count 4.64 10^6/uL Normal 4.18-5.48 Hematocrit for Retic CNT 40 % Low 42-52 Laboratory test finding 04/21/2019 [facility] [place] LDH 186 U/L Normal 140-271 Iron & Iron Binding Capacity 04/21/2019 [facility] [place] Iron 55 g/dL Normal 50-212 Unsaturated Iron Binding < 294 g/dL Total Iron Binding Capacity 309 g/dL Normal 250-450 Transferrin 221 mg/dL Normal 203-362 % Iron Saturation 18 % Normal 15-55 Laboratory test finding 04/21/2019 [facility] [place] Ferritin 34.3 ng/mL Normal 24-336 Vitamin B12 279 pg/mL Normal 180-914 1 Protein 04/21/2019 [facility] [place] Total Protein(Pep) 6.0 g/dL Abnormal 6.3 - 7.9 Electrophoresis Albumin 3.1 g/dL Abnormal 3.4-4.7 Alpha-1 Globulin 0.3 g/dL 0.1-0.3 Alpha-2 Globulin 0.9 g/dL 0.6-1.0 Beta Globulin 0.8 g/dL 0.7-1.2 Gamma Globulin 0.8 g/dL 0.6-1.6 Albumin/Globulin Ratio 1.07 Impression See Comment 2 Xray 04/14/[address] Chest W/Contrast SEE ATTACHED [facility] [phone] Ua - Micro (Fma) 04/13/2019 [facility] Appearance clear (607)- - Color yellow Glucose, Urine (Fma/CMC/CTX) neg Bilirubin neg Ketones trace SP Grav 1.025 Blood trace-lysed PH 5.0 Protein 2+ Urobil 0.2 Nitrite neg Leukocytes (Fma/CMC/Centrex) neg Hyaline - /Lpf Granular - /Lpf WBC (Fma,Centrex) - RBC 0-2 Mucus (Fma/CBC/Centrex) - /Lpf Epith rare /Lpf Bacteria trace /Hpf Amorphous (Fma/CMC/Centrex) - /Lpf Crystals, Fluid (Fma/CMC/CTX) - Comprehensive Metabolic 04/13/2019 [facility](fma) Sodium 136 mEq/L 134-149 Prof Potassium 3.8 [...] ml/min/1.73m^ Low >=60 Laboratory test 04/13/2019 [facility](a) Free T4 1.11 ng/dL 0.75- 1.54 finding TSH 2.50 mIU/L 0.50-6.00 Vitamin B-12 278 pg/mL 230-1050 PSA <0.1 ng/mL Low 0.0-4.0 6 CBC Electronic Fma 04/13/2019 [facility](fma) WBC 6.0 x10^3/UL 4.0- 10.0 RBC 4.61 x10^6/UL 3.93-6.00 HGB 13.7 g/dL 12.0-17.0 HCT 41 % 35-50 MCV 88.3 fL 80.0-95.0 MCH 29.7 pg 25.6-32.2 MCHC 33.7 g/dL 32.2-36.0 RDW-CV 14.1 % 11.6-14.4 PLT 155 x10^3/UL Low 163-400 MPV 11.5 fL 9.4-12.4 Shaun# 3.67 x10^3/UL 1.56-6.13 Lymph# 1.14 x10^3/UL Low 1.18-3.74 Cannon# 1.09 x10^3/UL High 0.24-0.82 Eos # 0.1 x10^3/UL 0.0-0.5 Baso # 0.02 x10^3/UL 0.01-0.08 Shaun% 61.4 % 34.0-70.0 Lymph % 19.1 % Low 20.0-52.0 Cannon% 18.2 % High 5.0-12.0 7 Eos% 0.8 % 0.7-7.0 Baso% 0.3 % 0.1-1.2 Laboratory test 04/13/2019 [facility] C-Reactive 24 mg/L High 0-10 8 finding [address] [facility] Protein, [place] [address] (607)- - Lyme Antibody, 04/13/2019 [facility] IgG P93 Ab. Absent Line Blot, Serum [address] [place] [address] (607)- - IgG P66 Ab. Absent IgG [...] protein on serum electrophoresis. Test Performed by: [facility] [address] [place] [address] 3 RESULTS VERIFIED BY REPEAT ANALYSIS 4 [...] are those recommended by CDC/ASTPHLD. p23=Osp C, k82=hiwrmcagz Note: Sera from individuals with the following may cross react in the Lyme Western Blot assays: other spirochetal diseases (periodontal disease, leptospirosis, relapsing fever, yaws, and pinta); connective autoimmune (Rheumatoid Arthritis and Systemic Lupus Erythematosus and also individuals with Antinuclear Antibody); other infections (Emporium Spotted Fever; Sobeida-Brunner Virus, and Cytomegalovirus). 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 hypertension G47.33 Obstructive sleep apnea (adult) (pediatric) Z85.09 Personal history of malignant neoplasm of digestive organs Z85.528 Personal history of other malignant neoplasm of kidney Z85.46 Personal history of malignant neoplasm of prostate R53.83 Other fatigue R19.7 Diarrhea, unspecified R63.4 Abnormal weight loss R16.0 Hepatomegaly, not elsewhere classified R31.29 Other microscopic hematuria Assessments Date Code Description Provider 05/21/2019 Z85.46 Personal history of malignant neoplasm of Washington Welch M.D. prostate 05/21/2019 Z85.09 Personal history of malignant neoplasm of Washington Welch M.D. other digestive organs 05/21/2019 G47.33 Obstructive sleep apnea (adult) (pediatric) Washington Welch M.D. 05/21/2019 I10 Essential (primary) hypertension Washington Welch M.D. 05/21/2019 M54.5 Low back pain Washington Welch M.D. 05/21/2019 M79.604 Pain in right leg Washington Welch M.D. 05/21/2019 H61.23 Impacted cerumen, bilateral Washington Welch M.D. 05/21/2019 Z00.00 Encounter for general adult medical Washington Welch M.D. examination without abnormal findings 05/07/2019 C64.1 Malignant neoplasm of right kidney, [...] M.D. 04/13/2019 R31.29 Other microscopic hematuria Antonietta [place], M.D. Plan of Treatment 05/21/2019 - Washington Welch M.D.Z85.46 Personal history of malignant neoplasm of prostateComments:PSA is 0, to continue follow up with Dr Herman85.09 Personal history of malignant neoplasm of other digestive organsComments:check hemeoccults, consider Cologuard vkchayyU17.33 Obstructive sleep apnea (adult) (pediatric)Comments:continue follow up with sleep labI10 Essential (primary) hypertensionComments:continue current medication, call if bp elevation is persistent above 140/90M54.5 Low back painComments:? if this caused sciatica in right leg, consider lumbosacral spine xray , physical therapy referral and Ortho consultFollow up:Followup:. (Follow up)M79.604 Pain in right legComments:symptoms now have resolved , will use oxycodone prn , consider MRI or bone scan if symptoms igdmeonZ28.23 Impacted cerumen, bilateralComments:wax flushed and swabbed with dacron xdyxfU31.00 Encounter for general adult medical examination without abnormal findingsComments:flu shot given, advised Shingrix vaccine to prevent shingles continue care with Dr Landry up:Followup:. (Follow up)AllComments:Medication Management Patient Understands medications he's taking? Yes No Are there Barriersto Adherence? Yes No Has the patient been asked about herbal supplements and therapies, and OTC meds? Yes No Patient was given anticipatory guidance regarding routine health care screenings, immunizations, and primary prevention of illness. Functional Status Description No Information Available Mental Status Description No Information Available Referrals Refer to Reason for Referral Status Appt Date Mj Garcia New right renal mass seen on CT Scan/patient has Scheduled 01/2019 hx of renal cancer jw [address] [facility] [place] [address] [place] [address] [phone] Pedro Luis Ayala MD new right renal mass seen on ct/patient has Scheduled 04/21 history of renal cancer jw [address] [facility] [address] [place] [id number] [phone]
[2019-05-23 10:54] VITALS: BP 178/61
--- NOTE | 2019-05-23 11:37 | UC ---
Lower Extremity/Ankle HPI - HPI Summary HPI Summary: 88 year old male presents with persistent and worsening right leg pain. He was initially seen at this facility on 05/20/2019 for 2 day history of right leg pain that seem to be more localized in the knee and upper lower leg at that time. X-ray of right knee and tib/fib were obtained showing osteoarthritis of the knee and likely popliteal cyst. A venous US of the leg was also obtained and now DVT was seen. He was given a prescription for a naproxen which he states has no effect on the pain. Reports he also tried taking an oxycodone his had left over with no relief in pain. Patient he is now experiencing pain from his right hip/buttock down to his mid-calf. Pain is constant and sharp. Wakes him from sleep. He was seen by his PCP 2 days ago who told him it may be sciatica. 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 He is followed by Dr. Ayala for this and has appointment with him on 05/25/2019. Denies fever, chills,rash, lower extremity weakness, numbness, tingling, difficulty with ambulating, loss of bowel or bladder control. - History of Current Complaint Chief Complaint: UCBackPain Stated Complaint: SCIATICA PAIN Time Seen by Provider: 05/23/19 11:07 Hx Obtained From: Patient Pain Intensity: 8 - Allergies/Home Medications Allergies/Adverse Reactions: Allergies Allergy/AdvReac Type Severity Reaction Status Date / Time No Known Allergies Allergy Verified 05/23/19 10:54 PMH/Surg Hx/FS Hx/Imm Hx Cardiovascular History: Hypertension Cancer History: Colorectal Cancer, Other - Renal carcinoma - Surgical History Surgical History: Yes Surgery Procedure, Year, and Place: 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 - Social History Occupation: Retired Lives: With Family Alcohol Use: Rare Substance Use Type: None Smoking Status (MU): Never Smoked Tobacco - Immunization History Most Recent Influenza Vaccination: 2012 Most Recent Tetanus Shot: UNSURE Most Recent Pneumonia Vaccination: 2013 Review of Systems All Other Systems Reviewed And Are Negative: Yes Constitutional: Negative: Fever, Chills Skin: Negative: Rash, Bruising Respiratory: Positive: Negative Cardiovascular: Positive: Negative Gastrointestinal: Positive: Negative Genitourinary: Positive: Negative Motor: Negative: Weakness Neurovascular: Negative: Decreased Sensation Musculoskeletal: Positive: Other: - See HPI Neurological: Positive: Negative Is Patient Immunocompromised?: No Physical Exam - Summary Physical Exam Summary: GENERAL APPEARANCE: Alert and cooperative older adult male who appears to be in no acute distress. CARDIAC: Normal S1 and S2. No S3, S4 or murmurs. Rhythm is regular. There is no peripheral edema, cyanosis or pallor. Extremities are warm and well perfused. Capillary refill is less than 2 seconds. Peripheral pulses intact. LUNGS: Clear to auscultation without rales, rhonchi, wheezing or diminished breath sounds. ABDOMEN: Positive bowel sounds. Soft, nondistended, nontender. No guarding or rebound. No masses or hepatosplenomegally. MUSKULOSKELETAL: ROM intact to all extremities. No joint erythema or tenderness. Steady gait. BACK: Examination of the spine reveals no spinal deformity or tenderness or muscular spasm. EXTREMITIES: No significant deformity or joint abnormality. Superficial varicosities to the lower extremities. No edema. NEUROLOGICAL: Strength and sensation symmetric and intact to lower extremities. Reflexes 2+ throughout. SKIN: Skin normal color, texture and turgor with no lesions or eruptions. Triage Information Reviewed: Yes Vital Signs: Initial Vital Signs Temp 98 F 05/23/19 10:51 Pulse 61 05/23/19 10:51 Resp 16 05/23/19 10:51 BP 178/61 05/23/19 10:51 Pulse Ox 99 05/23/19 10:51 Vital Signs Reviewed: Yes Lower Extremity Course/Dx - Course Course Of Treatment: 88 year old male presents with persistent and worsening right leg pain. He was initially seen at this facility on 05/20/2019 for 2 day history of right leg pain that seem to be more localized in the knee and upper lower leg at that time. X-ray of right knee and tib/fib were obtained showing osteoarthritis of the knee and likely popliteal cyst. A venous US of the leg was also obtained and now DVT was seen. He was given a prescription for a naproxen which he states has no effect on the pain. Reports he also tried taking an oxycodone his had left over with no relief in pain. Patient he is now experiencing pain from his right hip/buttock down to his mid-calf. Pain is constant and sharp. Wakes him from sleep. He was seen by his PCP 2 days ago who told him it may be sciatica. 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 He is followed by Dr. Ayala for this and has appointment with him on 05/25/2019. Denies fever, chills,rash, lower extremity weakness, numbness, tingling, difficulty with ambulating, loss of bowel or bladder control. Afebrile. Hypertensive otherwise vital signs stable. On exam patient's back was nontender , no specific joint tenderness or deformity, sensation and strength were intact bilaterally to his lower extremities, and remainder of exam was unremarkable. I discussed with the patient that based on his history sciatica was a possible diagnosis however also need to consider the possibility of spinal cord or nerve root compression secondary to a tumor especially considering the recent finding of a recurrence of his renal carcinoma. We'll treat him today for sciatica and start him on prednisone 50 mg daily 5 days, have him use some heat therapy, and refer him to physical therapy for evaluation and treatment. He is to follow -up with his primary care provider in 3-5 days for reevaluation of his symptoms. Anticipatory guidance and warning symptoms requiring immediate evaluation in the emergency room were reviewed with the patient. Verbalizes understanding and agrees with plan of care. - Differential Dx/Diagnosis Differential Diagnosis/HQI/PQRI: Arthritis, Phlebitis, Sciatica, Strain, Other - neoplastic spinal cord compression Provider Diagnosis: Right sided sciatica Discharge ED - Sign-Out/Discharge Documenting (check all that apply): Patient Departure All imaging exams completed and their final reports reviewed: No Studies - Discharge Plan Condition: Stable Disposition: HOME Prescriptions: predniSONE TAB* [Deltasone TAB*] 50 mg PO DAILY #5 tab Patient Education Materials: Sciatica (ED) Referrals: Washington Welch MD [Primary Care Provider] - 5 Days Additional Instructions: Your symptoms as suggestive of sciatica however with your history of kidney cancer with a recent reoccurrence I cannot fully rule out the possibility that your symptoms could be from a metastatic tumor causing compression on the spinal cord or nerve root. Start prednisone 50 mg 1 tablet daily for 5 days. Use a heating pad to the affected area for 15-20 min 4 times a day to help with the pain. Try to remain as active as possible but make sure you avoid activities that cause pain. I have also provided you with an order for physical therapy to try to improve the pain. Follow up with your primary care provider within 5 days for a recheck of your symptoms. If you are still not having any relief from the pain with treatment I think it is important to have a discussion with your primary care provider about next steps for evaluating the cause of the pain. Seek immediate medical attention in the emergency room if you develop worsening pain, weakness of the leg(s), you are unable to walk, you lose control of your bowel or bladder, or have any worsening of symptoms. - Billing Disposition and Condition Condition: STABLE Disposition: Home
== END 2019-05-23 11:52 | disposition home or self-care (01) ==
LOC: UCEAST 10:47
DX: M54.31 Sciatica, right side (principal); I10 Essential (primary) hypertension; N28.89 Other specified disorders of kidney and ureter; Z85.038 Personal history of other malignant neoplasm of large intestine
CPT/HCPCS: 99212; G0463

== ENCOUNTER 2019-05-28 07:10 | Emergency (ER) | payer MEDICARE ==
--- OUTSIDE RECORDS SUMMARY | 2019-05-28 07:29 | XMS REPORT | Continuity of Care Document ---
:1930 External Reference #:[id number] Author Name Wesly Garcia M.D. 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 Onset: 08/05/2013 Electrocardiogram abnormal Omari Nelson M.D. Onset: 08/05/2013 Thoracic Aortic Ectasia Michael Vega M.D., [facility], Onset: 12/10/2013 [facility] Obstructive sleep apnea syndrome Marilee Onofre DNP, RN, [facility] Onset: Dyssomnia Marilee Onofre DNP, RN, [facility] Onset: 03/19/2016 Premature beats Michael Vega M.D., [facility], Onset: 05/14/2019 FASIN Sinus node dysfunction Michael Vega M.D., [facility], Onset: 03/01/2019 FASNC Social History Type Date Description Comments Sex Unknown ETOH Use Denies alcohol use Tobacco Use Start: Unknown Patient has never smoked Recreational Drug Use Denies Drug Use Smoking Status Reviewed: 05/14/19 Patient has never smoked Exercise Type/Frequency Exercises sporadically Allergies, Adverse Reactions, Alerts Active Allergies Reaction Severity Comments Date NKDA 04/14/2018 Inactive Allergies NKDA 08/05/2013 Lopressor SOB Patient does not think he ever took this 12/09/2013 Medications Active Medications SIG Qnty Indications Ordering Date Provider Amlodipine Besylate 1 by mouth Unknown 11/11/2018 5mg Tablets every day Hydrochlorothiazide 1 cap by mouth 90caps Michael Marcano 12/14/2012 12.5mg every day Jim Vega, Capsules FACC, FASNC Aspirin 1 po qd 100tabs Unknown 81mg Tablets Trazodone HCL 1 tab by mouth Unknown every day at bedtime Immunizations Description No Information Available Vital Signs Date Vital Result Comment 05/14/2019 11:19am Height 67 inches 5'7" Weight 177.25 lb Heart Rate 66 /min BP Systolic Sitting 136 mmHg Rue reg cuff BP Diastolic Sitting 64 mmHg Rue reg cuff BP Systolic Standing 134 mmHg Rue reg cuff BP Diastolic Standing 58 mmHg Rue reg cuff Respiratory Rate 13 /min BMI (Body Mass Index) 27.8 kg/m2 Ejection Fraction 55-60% ECHO 02/12/2019 03/12/2019 10:57am Height 67 inches 5'7" Weight 170.50 lb Heart Rate 68 /min BP Systolic Sitting 138 mmHg Lue reg cuff BP Diastolic Sitting 48 mmHg Lue reg cuff Respiratory Rate 16 /min O2 % BldC Oximetry 95 % On Ra BMI (Body Mass Index) 26.7 kg/m2 Results Description No Information Available Procedures Date Code Description Status 03/11/2019 58093 Holter Monitor Review (24 hr)dr review & interp only Completed 03/10/2019 55349 ECG Monitor/Recording W/Visual Superimposition Scanning Completed 03/01/2019 01200 EKG Tracing & Interpretation Completed 02/12/2019 44278 ECHO Transthoracic, Real-Time 2D With Doppler And Color Completed Flow 02/12/2019 16963 ECHO Transthoracic, Real-Time 2D With Doppler And Color Completed Flow Medical Devices Description No Information Available Encounters Type Date Location Provider Dx Diagnosis Office Visit 05/14/2019 [facility] Michaelerik Marcano I49.3 Ventricular 11:45a Of Anni Vega M.D., premature FACC, FASNC depolarization Office Visit 03/12/2019 [facility] Mar[facility] Onofre, G47.37 Central sleep apnea 11:00a [facility], RN, [employer] 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 , [facility], [facility] 03/12/2019 G47.37 Central sleep apnea in conditions Marilee Onofre DNP, RN , classified elsewhere [facility] 03/12/2019 R00.8 Other abnormalities of heart beat Marilee Onofre DNP, RN, [facility] 03/11/2019 I49.5 Sick sinus syndrome Michael Vega M.D., [facility], [facility] 03/11/2019 I49.3 Ventricular premature depolarization Michael Vega M.D. , [facility], [facility] 03/10/2019 I49.5 Sick sinus syndrome Nurse Visit 03/10/2019 I49.3 Ventricular premature depolarization Nurse Visit 03/01/2019 I49.5 Sick sinus syndrome Michael Vega M.D., [facility], [facility] 03/01/2019 I77.819 Aortic ectasia, unspecified site Michael Vega M.D., [facility], [facility] 03/01/2019 I35.1 Nonrheumatic aortic (valve) Michael Vega M.D., [facility], insufficiency [facility] 03/01/2019 R53.83 Other fatigue Michael Vega M.D., [facility], [facility] 03/01/2019 R94.31 Abnormal electrocardiogram [ECG] Michael Vega M.D., [facility], [EKG] [facility] 02/12/2019 I77.810 Thoracic aortic ectasia Michael Vega M.D., [facility], [facility] 02/12/2019 I77.810 Thoracic aortic ectasia Ica ECHO Schedule Plan of Treatment Future Appointment(s):03/13/2020 10:30 am - Marilee Onofre DNP, RN, [facility] at [facility]05/14/2019 - Michael Vega M.D., [facility], [id number] Ventricular premature depolarizationComments:As discussed, your heart testing looks fine including you do not need a pacemaker. Please call me ifyou have any heart related concerns in the future.Follow up:prn Functional Status Description No Information Available Mental Status Description No Information Available Referrals Description No Information Available
--- NOTE | 2019-05-28 07:55 | ED ---
Back Pain - HPI Summary HPI Summary: Pt. is an 88 y.o male who presents to the ER for ongoing right low back and right leg pain x 2 weeks. Pt. denies any falls or injuries. Pt. notes pain is worse at night when in bed. Pt. denies fever, cp, sob, abd. pain, V/D, numbness/ tingling/weakness. Pain radiates into right leg. Pt. has been seen twice at and tried on naproxen, prednisone and took oxycodone at home without improvement. Sxs are moderate in severity. No current modifying factors. - History of Current Complaint Chief Complaint: EDBackInjuryPain Stated Complaint: PAIN IN RIGHT LEG PER PT Time Seen by Provider: 05/28/19 07:45 Hx Obtained From: Patient Pain Intensity: 8 - Allergies/Home Medications Allergies/Adverse Reactions: Allergies Allergy/AdvReac Type Severity Reaction Status Date / Time No Known Allergies Allergy Verified 05/23/19 10:54 Home Medications: Home Medications traZODone TAB* [Desyrel TAB*] 50 mg PO BEDTIME 05/28/19 [History Confirmed 05/28] PMH/Surg Hx/FS Hx/Imm Hx Previously Healthy: Yes Endocrine/Hematology History: Denies: Hx Diabetes Cardiovascular History: Reports: Hx Hypertension, Other Cardiovascular Problems/ Disorders - IRREGULAR HEART BEAT - F/U WITH DR. 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 dx, Other Problems/ Disorders - PROSTATE CA Denies: Hx Dialysis Sensory History: Denies: Hx Hearing Aid Psychiatric History: Denies: Hx Panic Disorder - Cancer History Cancer Type, Location and Year: COLON CA 2009. PROSTATE CA 1999 Hx Chemotherapy: No Hx Radiation Therapy: No - Surgical History Surgery Procedure, Year, and Place: TUMOR REMOVED FROM LT KIDNEY 2012 unkown dx , COLON CA 05/04, PROSTATECTOMY 1999 Infectious Disease History: No Infectious Disease History: Denies: Traveled Outside the [place] in Last 30 Days - Family History Known Family History: Positive: None, Non-Contributory Family History: Brother had pituitary tumor removed. - Social History Occupation: Retired Lives: With Family Alcohol Use: Rare Substance Use Type: Reports: None Smoking Status (MU): Never Smoked Tobacco Review of Systems Constitutional: Negative Negative: Fever, Chills Cardiovascular: Negative Negative: Chest Pain Respiratory: Negative Negative: Shortness Of Breath Gastrointestinal: Negative Negative: Abdominal Pain, Vomiting, Diarrhea Genitourinary: Negative Negative: frequency, flank pain, incontinence Positive: Other - Right low back pain that radiates into right leg Skin: Negative Neurological: Negative Negative: Weakness, Paresthesia, Numbness All Other Systems Reviewed And Are Negative: Yes Physical Exam Triage Information Reviewed: Yes Vital Signs On Initial Exam: Initial Vitals Temp Pulse Resp BP Pulse Ox 97.9 F 71 17 140/68 96 05/28/19 07:16 05/28/19 07:16 05/28/19 07:16 05/28/19 07:16 05/28/19 07:16 Vital Signs Reviewed: Yes Appearance: Positive: Well-Appearing - Pt. sitting Skin: Positive: Warm, Dry Head/Face: Positive: Normal Head/Face Inspection Eyes: Positive: Normal, EOMI Neck: Positive: Supple Respiratory/Lung Sounds: Positive: Clear to Auscultation, Breath Sounds Present Cardiovascular: Positive: Normal, RRR Abdomen Description: Positive: Nontender, Soft Musculoskeletal: Positive: Other - No midline lumbar tenderness. Mild edema to right leg. Good pedal pulse. 5/5 strength in bilateral LEs. Full ROM of hip and knee without pain. Moves easily on bed. Neurological: Positive: Normal, CN Intact II-III Psychiatric: Positive: Affect/Mood Appropriate Procedures - Sedation Patient Received Moderate/Deep Sedation with Procedure: No Diagnostics - Vital Signs Vital Signs Temp Pulse Resp BP Pulse Ox 05/28/19 07:16 97.9 F 71 17 140/68 96 - Laboratory Result Diagrams: 05/28/19 08:30 05/28/19 08:30 Lab Statement: Any lab studies that have been ordered have been reviewed, and results considered in the medical decision making process. Back Pain Course/Dx - Course Course Of Treatment: Patient presenting with ongoing low back pain. He has no neurological deficits on exam or evidence of cauda equina syndrome. Patient is afebrile. Vital signs are stable. Patient had normal abdominal CT scan with contrast roughly 2 months ago. Venous duplex ordered to rule out DVT given unilateral edema and lumbar CT for further evaluation. Patient given [address] per radiology: IMPRESSION: 1. OSTEOPENIA. 2. DEGENERATIVE DISC DISEASE AND OSTEOARTHRITIS. 3. THERE IS MODERATE TO SEVERE NARROWING OF THE CENTRAL CANAL AT L4-L5 WITH MODERATE. NARROWING AT L3-L4 AND MILD NARROWING AT L5-S1. 4. THERE IS MULTILEVEL NEUROFORAMINAL NARROWING NOTED ABOVE. 5. AGAIN NOTED IS AN EXOPHYTIC SOLID LESION OF THE UPPER POLE OF THE LEFT KIDNEY SIMILAR. TO THE PREVIOUS CT EXAMINATION. Reexamination patient notes his pain is still the same but he is easily able to sit up on stretcher and walk without difficulties. Blood work is unremarkable other than mild anemia and elevated creatinine. Patient notes his family doctor is setting him up with physical therapist. Patient states he would like to be referred to neurosurgery. Patient ambulated without difficulty and was able to dress himself and standing in the doorway waiting for discharge. Will try lidocaine patch. Patient given warning signs to return to the ER. Patient understands and agrees with plan. Discharged home with his . - Diagnoses Differential Diagnosis/HQI/PQRI: Positive: Arthritis, Fracture, Herniated Disc, Neoplasm, Strain, Sprain Provider Diagnoses: Central stenosis of spinal canal, Back pain Discharge ED - Sign-Out/Discharge Documenting (check all that apply): Patient Departure - Discharge Plan Condition: Good Disposition: HOME Prescriptions: Lidocaine PATCH 5%* [Lidoderm 5% Patch*] 1 patch TRANSDERM DAILY #10 patch Patient Education Materials: Lumbar Spinal Stenosis (ED), Acute Low Back Pain ( ED) Referrals: Washington Welch MD [Primary Care Provider] - Michael Bailey MD [Medical Doctor] - Additional Instructions: Please call PCP and PT today for close follow up appointments Apply warm compresses to back Lidocaine patch as directed Tylenol as directed Return to ER for increased pain, fever, leg weakness, loss of bowel or bladder function or if concerned - Billing Disposition and Condition Condition: GOOD Disposition: Home
[2019-05-28] MEDS ORDERED: HYDROcodone/ACETAMIN 5-325 MG* 1 TAB PO ONE (08:10)
[2019-05-28 08:36] LABS: ABS Eosinophils 0.1 10^3/ul (0-0.6); ABS Lymphocytes 1.4 10^3/ul (1.0-4.8); ABS Monocytes 1.1 10^3/ul (0-0.8); ABS Neutrophils 5.1 10^3/ul (1.5-7.7); Eosinophil % 1.3 %; Hematocrit 35 % (42-52); Lymphocyte % 18.6 %; Mean Corpuscular HGB Conc 34 g/dL (31-36); Mean Corpuscular Hemoglobin 30 pg (27-31); Mean Corpuscular Volume 87 fL (80-94); Mean Platelet Volume 8.4 fL (7.4-10.4); Nucleated Red Blood Cells % 0.1; Platelet Count 199 10^3/uL (150-450); Red Blood Count 4.06 10^6 /uL (4.18-5.48); Red Cell Distribution Width 15 % (10-15); White Blood Count 7.8 10^3/uL (3.5-10.8)
[2019-05-28 08:48] LABS: Activated Partial Thrombo Time 31.8 seconds (26.0-38.0); INR 1.18 (0.82-1.09)
[2019-05-28 08:54] LABS: ALT 19 U/L (7-52); AST 13 U/L (13-39); Albumin 3.5 g/dL (3.2-5.2); Albumin/Globulin Ratio 1.8 (1-3); Alkaline Phosphatase 45 U/L (34-104); Anion Gap 5 mmol/L (2-11); BUN/Creatinine Ratio 29.8 (8-20); Blood Urea Nitrogen 39 mg/dL (6-24); C Reactive Protein < 1.00 mg/L (<8.01); CO2 Carbon Dioxide 29 mmol/L (22-32); Calcium 8.9 mg/dL (8.6-10.3); Chloride 104 mmol/L (101-111); EGFR African American 62.3 (>60); EGFR Non-African American 51.5 (>60); Glucose 99 mg/dL (70-100); Potassium 3.8 mmol/L (3.5-5.0); Sodium 138 mmol/L (135-145); Total Protein 5.5 g/dL (6.4-8.9)
[2019-05-28 10:49] VITALS: BP 173/62
== END 2019-05-28 10:43 | disposition home or self-care (01) ==
LOC: ED 07:10
DX: M48.00 Spinal stenosis, site unspecified (principal); M54.5 Low back pain; M79.605 Pain in left leg; Z79.899 Other long term (current) drug therapy; I10 Essential (primary) hypertension; Z86.79 Personal history of other diseases of the circulatory system; Z85.038 Personal history of other malignant neoplasm of large intestine; Z85.46 Personal history of malignant neoplasm of prostate; M51.36 Other intervertebral disc degeneration, lumbar region; M85.80 Other specified disorders of bone density and structure, unspecified site
CPT/HCPCS: 36415; 72131; 80053; 85025; 85610; 85730; 86140; 99282